=== PATIENT | male | born 1955 | race Caucasian/White ===

== ENCOUNTER → 2016-11-16 | Outpatient (CLI) | payer OTHER ==
[~2016-11-16] MED LIST: GADOBUTROL 10 ML VIAL IVP ONE
== END ==
LOC: FIMAGING 15:01
PROVIDERS: ATTEND Internal Medicine Infectious Disease
DX: L02.91 Cutaneous abscess, unspecified (principal); Z79.2 Long term (current) use of antibiotics
CPT/HCPCS: 72157; A9585

== ENCOUNTER → 2016-11-29 | Day surgery (SDC) | payer OTHER | END | disposition home or self-care (01) | LOC: FIMAGING 10:01 | PROVIDERS: ATTEND Internal Medicine Infectious Disease | PROC: 0W9K3ZZ Drainage of Upper Back, Percutaneous Approach (ICD-10-PCS; principal; 2016-11-29) | DX: M79.9 Soft tissue disorder, unspecified (principal) ==

== ENCOUNTER 2018-09-21 14:44 | Emergency (ER) | payer OTHER ==
--- NOTE | 2018-09-21 16:06 | EDPHY ---
H & P Stated Complaint: ?inf r foor red and swollen Time Seen by Provider: 09/21/18 15:52 HPI/ROS: CHIEF COMPLAINT: Right foot infection HISTORY OF PRESENT ILLNESS: 62-year-old male with ankylosing spondylosis presents with pain and swelling of the right foot. 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 Onset of pain in the 3rd toe and forefoot a few days ago, gradually increasing. No associated fever and no drainage. REVIEW OF SYSTEMS: complete 10 point ROS reviewed and is negative except for the noted elements in the HPI - Personal History Current Tetanus Diphtheria and Acellular Pertussis (TDAP): Yes - Medical/Surgical History Hx Asthma: No Hx Chronic Respiratory Disease: No Hx Diabetes: No Hx Cardiac Disease: No Hx Renal Disease: No Hx Cirrhosis: No Hx Alcoholism: No Hx HIV/AIDS: No Hx Splenectomy or Spleen Trauma: No Other PMH: right hip replacement X2. left hip replacement. pedicle ostotomy. ank spondylitis. DVT - Social History Smoking Status: Former smoker Alcohol Use: Sober - Physical Exam Exam: General Appearance: Alert, pleasant, nontoxic Eyes: Pupils equal and round, no conjunctival pallor ENT, Mouth: Mucous membranes moist Neck: Normal inspection Respiratory: Lungs are clear to auscultation Cardiovascular: Regular rate and rhythm Gastrointestinal: Abdomen is soft and nontender Neurological: A&O, nonfocal exam Skin: Warm and dry Extremities: right foot-superficial open wound on plantar aspect of the 3rd toe , slight adjacent erythema, no drainage; mild edema of the forefoot, no erythema or tenderness of the foot Psychiatric: Mood and affect normal Constitutional: Initial Vital Signs Temperature (C) 37 C 09/21/18 15:00 Heart Rate 97 09/21/18 15:00 Respiratory Rate 17 09/21/18 15:00 Blood Pressure 152/83 H 09/21/18 15:00 O2 Sat (%) 91 L 09/21/18 15:00 O2 Delivery Mode Room Air Allergies/Adverse Reactions: meperidine HCl [From Demerol] Allergy (Mild, Verified 09/21/18 15:00) Vomiting Home Medications: Medication Instructions Recorded Methadone HCl [Methadone 5 mg (*)] 10 mg PO BID@1200,2100 08/07/15 Methadone HCl [Methadone 5 mg (*)] 20 mg PO DAILY@0800 08/07/15 Gabapentin mg PO 11/25/16 Hydrochlorothiazide mg PO DAILY 11/25/16 Meloxicam mg PO DAILY 11/25/16 Sulfasalazine mg PO 11/25/16 Cephalexin [Keflex (*)] 500 mg PO TID #30 cap 09/21/18 Hydrocodone/APAP 5/325 [[place]imb[place] 1 - 2 tab PO Q4H PRN #15 tab 09/21/18 5/325 (*)] predniSONE 1 tab PO DAILY #15 tab 09/21/18 Medical Decision Making ED Course/Re-evaluation: This pt presents with a superficial toe abrasion and early cellulitis. The wound was cleaned. Rx Keflex. pt strongly encouraged to clean wound with soap/ water 3 times daily and apply abx ointment after cleansing. Warning signs discussed. Departure - Departure Disposition: Home, Routine, Self-Care Clinical Impression: Cellulitis Qualifiers: Site of cellulitis: extremity Site of cellulitis of extremity: toe Laterality: right Qualified Code(s): L03.031 - Cellulitis of right toe Condition: Good Instructions: Cellulitis (ED) Additional Instructions: Return for worsening symptoms or any concerns. Wash the area 3-4 times daily with soap and water. Apply Neosporin after cleansing. Referrals: Sabino Madrid MD [Primary Care Provider] - 2-3 days, if not improved Prescriptions: Cephalexin [Keflex (*)] 500 mg PO TID #30 cap Hydrocodone/APAP 5/325 [[place] 5/325 (*)] 1 - 2 tab PO Q4H PRN #15 tab PRN Reason: Pain, Moderate predniSONE 1 tab PO DAILY #15 tab
[2018-09-21 16:42] VITALS: BP 137/79
== END 2018-09-21 16:41 | disposition home or self-care (01) ==
DX: L03.031 Cellulitis of right toe (principal); Z87.891 Personal history of nicotine dependence; M45.9 Ankylosing spondylitis of unspecified sites in spine